=== PATIENT | female | born 2000 | race Caucasian/White ===

== ENCOUNTER 2018-03-27 07:45 | Emergency (ER) | payer OTHER ==
[2018-03-27 08:01] VITALS: BP 99/52
[2018-03-27] MEDS ORDERED: Ondansetron TAB* 4 MG PO ONE (08:27)
[2018-03-27] MEDS ORDERED: Acetaminophen TAB* 325 MG PO ONE (08:28)
[2018-03-27] MEDS ORDERED: Ondansetron ODT TAB* 4 MG ONE (08:33)
[2018-03-27] MEDS ORDERED: Ondansetron ODT TAB* 4 MG PO ONE (08:34)
--- NOTE | 2018-03-27 15:33 | UC ---
Jarrod Purvis Nikita, scribed for Mathieu Lux MD on 03/27/18 at 0829 . General HPI - HPI Summary HPI Summary: This patient is a 17 year old F presenting to [facility] with a chief complaint of nausea and vomiting since 0300 this morning. The patient rates the pain 5/10 in severity. Symptoms aggravated by nothing. Symptoms alleviated by nothing. Patient reports sore throat (last night) and body aches. The patient denies abdominal pain. - History of Current Complaint Chief Complaint: UCGeneralIllness Stated Complaint: VOMITING Time Seen by Provider: 03/27/18 08:02 Hx Obtained From: Patient Hx Last Menstrual Period: 03/18/18 Onset/Duration: Sudden Onset, Lasting Hours - since last night, Still Present Timing: Constant Onset Severity: Moderate Current Severity: Moderate Pain Intensity: 5 Aggravating: nothing Alleviating: nothing Associated Signs & Symptoms: Positive: Other - nausea and vomiting since 0300; Patient reports sore throat (last night) and body aches. The patient denies abdominal pain. - Allergy/Home Medications Allergies/Adverse Reactions: Allergies Allergy/AdvReac Type Severity Reaction Status Date / Time No Known Allergies Allergy Verified 03/27/18 07:56 Home Medications: Home Medications Control 1 tab PO DAILY 03/27/18 [History Confirmed 03/27/18] PMH/Surg Hx/FS Hx/Imm Hx Endocrine History: Other Other Endocrine History: No DM Cardiovascular History: Other Other Cardiovascular History: No CAD, HTN - Surgical History Surgical History: Yes Surgery Procedure, Year, and Place: Ear tubes at age 1, Right shoulder surgery - Family History Known Family History: Positive: Hypertension - Social History Alcohol Use: None Substance Use Type: None Smoking Status (MU): Never Smoked Tobacco - Immunization History Vaccination Up to Date: Yes Review of Systems ENT: Sore Throat Gastrointestinal: Vomiting, Nausea, Other - The patient denies abdominal pain. Musculoskeletal: Other: - body aches All Other Systems Reviewed And Are Negative: Yes Physical Exam - Summary Physical Exam Summary: VITAL SIGNS: Reviewed. GENERAL: ~Patient is a well-developed and nourished MALE who is lying comfortable in the stretcher. ~Patient is not in any acute respiratory distress. HEAD AND FACE: Normocephalic EYES: PERRLA, EOMI x 2. EARS: Hearing grossly intact. MOUTH: Pharyngeal erythema. NECK: Supple, trachea is midline, no adenopathy, no JVD, no carotid bruit. CHEST: Symmetric, no tenderness at palpation LUNGS: Clear to auscultation bilaterally. No wheezing or crackles. CVS: Regular rate and rhythm, S1 and S2 present, no murmurs or gallops appreciated. ABDOMEN: Soft, non-tender. Bowel sounds are normal. No abdominal abnormal pulsations. EXTREMITIES: Full ROM in all major joints, no edema, no cyanosis or clubbing. NEURO: Alert and oriented x 3. No acute neurological deficits. Speech is normal and follows commands. SKIN: Dry and warm Triage Information Reviewed: Yes Vital Signs: Initial Vital Signs Temp 100.9 F 03/27/18 07:57 Pulse 124 03/27/18 07:57 Resp 16 03/27/18 07:57 BP 99/52 03/27/18 07:57 Pulse Ox 99 03/27/18 07:57 Vital Signs Reviewed: Yes Re-Evaluation - Re-Evaluation First Eval Re-Evaluation Time: 08:49 Comment: Discussed results with the patient. Course/Dx - Course Course Of Treatment: This patient is a 17 year old F presenting to [facility] with a chief complaint of nausea and vomiting since 0300 this morning. In the UC course , the patient was given Tylenol and Zofran. The patient will be discharged and was instructed to go to the ED if she gets any worse or if she develops MONTIEL, neck pain, or abdominal pain. The pt is hemodynamically stable, alert and oriented x3. I discussed all the findings and test results with the patient. The patient will be discharged with instructions to follow up with their PCP. Patient was instructed to return to the urgent care or go to ER immediately if any of the symptoms return or worsens. Plan of care was discussed with the patient, and patient understands and agrees. All questions were answered to patient satisfaction. There were no further complaints or concerns. - Differential Dx - Multi-Symptom Provider Diagnoses: viral illness Discharge - Sign-Out/Discharge Documenting (check all that apply): Discharge/Admit/Transfer - Discharge Plan Condition: Stable Disposition: HOME Patient Education Materials: Pharyngitis (ED), Viral Syndrome (ED) Referrals: No Primary Care Phys,NOPCP [Primary Care Provider] - Additional Instructions: Take medications as instructed Increase your fluid intake Return to the UC or go to the ED if symptoms worsen The documentation as recorded by the Jarrod cr Nikita accurately reflects the service I personally performed and the decisions made by me, Mathieu Lux MD.
== END 2018-03-27 09:00 | disposition home or self-care (01) ==
LOC: UCEAST 07:45
DX: B34.9 Viral infection, unspecified (principal); R11.2 Nausea with vomiting, unspecified
CPT/HCPCS: 36415; 81003; 84702; 86308; 86664; 86665; 87502; 87651; 99202; A9270-GY; G0463

== ENCOUNTER 2019-04-27 17:51 | Emergency (ER) | payer OTHER ==
--- NOTE | 2019-04-27 18:04 | UC ---
Skin Complaint HPI - HPI Summary HPI Summary: 18 yo female presents with rash. She tells me that this morning she woke up with bug bites to her left leg that were red and itchy. Since that time she has developed similar appearing bites on her right leg, torso, back, and b/l arms. She applied calamine lotion with mild relief of itch. She share a household with her fiancee and he does not have any symptoms. Pt was outdoors a lot yesterday, but denies coming into contact with any insects or shrubbery. Denies SOB, swelling, or difficulty breathing. - History of Current Complaint Time Seen by Provider: 04/27/19 18:03 Stated Complaint: RASH Hx Obtained From: Patient Hx Last Menstrual Period: FIRST WEEK AUGUST Onset/Duration: Sudden Onset Onset Severity: Mild Current Severity: Mild Pain Intensity: 3 Pain Scale Used: 0-10 Numeric - Allergy/Home Medications Allergies/Adverse Reactions: Allergies Allergy/AdvReac Type Severity Reaction Status Date / Time BRIAR'S ICE CREAM Allergy Severe Anaphylatic Uncoded 04/27/19 18:08 Shock Home Medications: Home Medications Norgestimate-Ethinyl Estradiol [Sprintec 28 0.25-35 mg-Mcg] 1 tab PO 04/27/19 [ History] PMH/Surg Hx/FS Hx/Imm Hx - Additional Past Medical History Additional PMH: None - Surgical History Surgical History: Yes Surgery Procedure, Year, and Place: Ear tubes at age 1, Right shoulder surgery - Family History Known Family History: Positive: Hypertension - Social History Lives: With Family Alcohol Use: None Substance Use Type: None Smoking Status (MU): Never Smoked Tobacco - Immunization History Most Recent Tetanus Shot: UNKNOWN Vaccination Up to Date: Yes Review of Systems All Other Systems Reviewed And Are Negative: Yes Constitutional: Positive: Negative Skin: Positive: Rash Respiratory: Positive: Negative Cardiovascular: Positive: Negative Neurovascular: Positive: Negative Neurological: Positive: Negative Psychological: Positive: Negative Physical Exam - Summary Physical Exam Summary: GENERAL: NAD. WDWN. No pain distress. SKIN: B/L arms, legs, torso, and back with scattered 4-5mm welt-like appearing mildly erythematous lesions. No streaking, drainage, ecchymosis, or warmth. NECK: Supple. Nontender. No lymphadenopathy. CHEST: No accessory muscle use. Breathing comfortably and in no distress. CV: Pulses intact. Cap refill <2seconds NEURO: Alert. PSYCH: Age appropriate behavior. Triage Information Reviewed: Yes Vital Signs: Vital Signs: Temp Pulse Resp BP Pulse Ox 99.2 F 79 18 119/76 98 04/27/19 18:04 04/27/19 18:04 04/27/19 18:04 04/27/19 18:04 04/27/19 18:04 Vital Signs Reviewed: Yes Course/Dx - Course Course Of Treatment: Appears to be insect/flea/bed bug bites. Will have pt wash her bedding, continue calamine lotion, take a daily benadryl, and will rx for prednisone. Advised to f/u if symptoms do not resolve in 5 days. - Diagnoses Provider Diagnosis: Bug bites Discharge - Sign-Out/Discharge Documenting (check all that apply): Patient Departure All imaging exams completed and their final reports reviewed: No Studies - Discharge Plan Condition: Stable Disposition: HOME Prescriptions: predniSONE TAB* [Deltasone 20 MG TAB*] 40 mg PO DAILY #10 tab Patient Education Materials: Insect Bite or Sting (ED) Referrals: Hanna Salinas MD [Primary Care Provider] - Additional Instructions: If you develop a fever, shortness of breath, chest pain, new or worsening symptoms - please call your PCP or go to the ED immediately. 1) May continue to apply calamine lotion 2) I recommend you take a daily benadryl for the next 5-7 days in addition to the prednisone - Billing Disposition and Condition Condition: STABLE Disposition: Home
[2019-04-27 18:08] VITALS: BP 119/76
== END 2019-04-27 18:29 | disposition home or self-care (01) ==
LOC: UCEAST 17:51
DX: S80.862A Insect bite (nonvenomous), left lower leg, initial encounter (principal); W57.XXXA Bitten or stung by nonvenomous insect and other nonvenomous arthropods, initial encounter; Y92.013 Bedroom of single-family (private) house as the place of occurrence of the external cause
CPT/HCPCS: 99212; G0463

== ENCOUNTER 2019-12-21 19:38 | Emergency (ER) | payer OTHER ==
[2019-12-21 20:22] VITALS: BP 140/96
--- NOTE | 2019-12-21 21:16 | UC ---
Throat Pain/Nasal Magdaleno HPI - HPI Summary HPI Summary: 19-year-old female presenting with for complaint of sore throat 2 weeks. Patient states sore throat gradually worsened over the past 3 days. Patient states she felt like there were "lumps" in her throat this morning she tried to cough to clear it bandaged up vomiting. States that sensation has resolved. Denies any further nausea or vomiting. Denies other URI symptoms. Denies PND. Denies fever and chills. Normal appetite and fluid intake. Denies concern for the flu. Does note history of mono last year but states she did not have a sore throat with that. Taking DayQuil without relief of symptoms. - History of Current Complaint Chief Complaint: UCRespiratory Stated Complaint: SORE THROAT Hx Obtained From: Patient Hx Last Menstrual Period: 1 week ago Pain Intensity: 3 Pain Scale Used: 0-10 Numeric - Allergies/Home Medications Allergies/Adverse Reactions: Allergies Allergy/AdvReac Type Severity Reaction Status Date / Time BRIAR'S ICE CREAM Allergy Severe Anaphylatic Uncoded 12/21/19 20:22 Shock Home Medications: Home Medications Dm/Acetaminophen/Doxylamine [Vicks Nyquil Liquicaps] 2 each PO PRN 12/21/19 [ History] PMH/Surg Hx/FS Hx/Imm Hx - Surgical History Surgical History: Yes Surgery Procedure, Year, and Place: Ear tubes at age 1, Right shoulder surgery - Family History Known Family History: Positive: Hypertension - Social History Alcohol Use: None Substance Use Type: None Smoking Status (MU): Never Smoked Tobacco - Immunization History Most Recent Tetanus Shot: UNKNOWN Vaccination Up to Date: Yes Review of Systems All Other Systems Reviewed And Are Negative: Yes Constitutional: Positive: Negative ENT: Positive: Sore Throat Respiratory: Positive: Negative Cardiovascular: Positive: Negative Gastrointestinal: Positive: Negative Musculoskeletal: Positive: Negative Neurological: Positive: Negative Physical Exam - Summary Physical Exam Summary: Vital Signs Reviewed: Yes A+Ox3, no distress Eyes: Conjunctiva Clear ENT: Hearing grossly normal, TM x 2 clear, moist, uvula midline, no exudate, no erythema Neck: Positive: Supple Respiratory: Positive: No respiratory distress, No accessory muscle use + CTA throughout no w/r Cardiovascular: RRR nl s1, s2 no m/r Musculoskeletal Exam: NOBLE x 4 without difficulty Neurological: Positive: Alert Psychological: Positive: age appropriate behavior Skin: Positive: no rash, no ecchymosis Vital Signs: Initial Vital Signs Temp 99.5 F 12/21/19 20:19 Pulse 100 12/21/19 20:19 Resp 16 12/21/19 20:19 BP 140/96 12/21/19 20:19 Pulse Ox 100 12/21/19 20:19 Throat Pain/Nasal Course/Dx - Course Course Of Treatment: Rapid strep test negative. Declined flu test. Discussed this with patient. I informed the patient that I sent a throat swab for culture and that she would be notified with any results that warrant treatment. Instructed to continue with symptomatic treatment and follow up with physician referral or [facility] clinic if symptoms worsen or do not resolve within the week. Patient voiced understanding and agreed with the treatment plan. - Differential Dx/Diagnosis Provider Diagnosis: Pharyngitis Discharge ED - Sign-Out/Discharge Documenting (check all that apply): Patient Departure All imaging exams completed and their final reports reviewed: No Studies - Discharge Plan Condition: Stable Disposition: HOME Patient Education Materials: Pharyngitis (ED) Referrals: [facility] [Outside] - If Needed [facility] [Outside] - If Needed Additional Instructions: You tested negative for strep throat today. Your throat swab has been sent for culture and you will be notified with any results that warrant treatment. You may take ibuprofen and/or tylenol as directed for pain relief. You may use over the counter throat sprays or lozenges for symptomatic relief. Get plenty of rest and increase fluid intake. Follow up with the physician referral or the care connections clinic listed below if symptoms do not improve within the week. - Billing Disposition and Condition Condition: STABLE Disposition: Home
== END 2019-12-21 21:52 | disposition home or self-care (01) ==
LOC: UCEAST 19:38
DX: J02.9 Acute pharyngitis, unspecified (principal); Z91.018 Allergy to other foods
CPT/HCPCS: 87070; 87651; 99211; G0463

== ENCOUNTER 2023-04-16 00:42 | Inpatient (IN) ==
[2023-04-16] MEDS ORDERED: Ondansetron 4 mg VIAL 2 MG/ML 2 ml VIAL IV ONE (01:02)
[2023-04-16] MEDS ORDERED: Morphine 4 MG/ML VIAL (1 ml) IV PRN (01:02)
[2023-04-16] MEDS ORDERED: Morphine 4 MG/ML VIAL (1 ml) IV ONE ×2 (01:02→01:41)
[2023-04-16] MEDS ORDERED: Lactated Ringers 1000 ml BAG 1,000 ML IV ONE (01:03)
[2023-04-16 01:28] LABS: ABS Eosinophils 0.2 10^3/uL (0.0-0.5); ABS Lymphocytes 1.1 10^3/uL (1.0-4.8); ABS Monocytes 0.6 10^3/uL (0.0-0.9); ABS Neutrophils 7.2 10^3/uL (1.5-7.6); Hematocrit 40.8 % (35-45); Hemoglobin 14.6 g/dL (11.5-14.3); Lymphocyte % 12.4 %; Mean Corpuscular Hemoglobin 33.2 pg (27-33); Mean Corpuscular Hgb Conc 35.6 g/dL (31-36); Mean Corpuscular Volume 93.2 fL (80-97); Mean Platelet Volume 7.9 fL (7.5-11.2); Platelet Count 224 10^3/uL (150-450); Red Blood Count 4.38 10^6/uL (3.63-4.92); Red Cell Distribution Width 11.9 % (12-17); White Blood Count 9.2 10^3/uL (3.8-11.8)
[2023-04-16] MEDS ORDERED: Droperidol 5 MG/2 ML 2 ML VIAL IV ONE (01:41)
[2023-04-16 02:11] LABS: ALT 36 U/L (7-52); AST 33 U/L (13-39); Albumin 4.3 g/dL (3.2-5.2); Albumin/Globulin Ratio 1.7 (1-3); Alkaline Phosphatase 97 U/L (35-149); Anion Gap 12 mmol/L (2-16); Blood Urea Nitrogen 12 mg/dL (6-24); C Reactive Protein 14.96 mg/L (<8.01); CO2 Carbon Dioxide 19 mmol/L (22-32); Calcium 9.1 mg/dL (8.6-10.3); Chloride 104 mmol/L (101-111); Creatinine, Serum 0.67 mg/dL (0.51-0.95); Globulin 2.6 g/dL (2-4); Glucose 125 mg/dL (70-100); Lipase 27 U/L (11.0-82.0); Potassium 3.2 mmol/L (3.5-5.0); Sodium 135 mmol/L (135-145); Total Protein 6.9 g/dL (6.4-8.9); eGFR CKD-EPI 125.1 (>60)
[2023-04-16 02:17] LABS: HCG Pregnancy < 0.60 mIU/mL
[2023-04-16] MEDS ORDERED: Iohexol 350 (CONTRAST) 500 ML MDV IV ONE (02:20)
[2023-04-16 04:46] LABS: Urine Appearance Clear; Urine Bilirubin Negative (Negative); Urine Blood Negative (Negative); Urine Color Yellow; Urine Glucose Negative (Negative); Urine Ketones 1+ (Negative); Urine Nitrite Negative (Negative); Urine Protein Negative (Negative); Urine Specific Gravity 1.032 (1.002-1.030); Urine Urobilinogen Negative (Negative)
[2023-04-16] MEDS ORDERED: HYDROmorphone 0.5 MG/0.5 ML SYRINGE IV SLOW PU PRN (06:08)
[2023-04-16] MEDS: Lactated Ringers 1000 ml BAG 1,000 ML IV SCH ×3 (06:22→22:50)
[2023-04-16] MEDS ORDERED: Bupivacaine 0.25% EPI 200,000 30 ML SDV ONE (07:02)
[2023-04-16] MEDS ORDERED: Buffered Lidocaine 1% SYRIN 1 ml INTRADERM ONE (07:14)
[2023-04-16] MEDS ORDERED: Scopolamine 1 mg/72hr PATCH TRANSDERM ONE (07:14)
[2023-04-16] MEDS ORDERED: fentaNYL 100 mcg/2 ml 50 MCG/ML VIAL IV PRN (07:19)
[2023-04-16] MEDS ORDERED: Naloxone 0.4 mg VIAL 0.4 mg/ml 1 ml VIAL IV PRN (07:19)
[2023-04-16] MEDS ORDERED: HYDROmorphone 1 MG/1 ML SYRINGE IV PRN (07:19)
[2023-04-16] MEDS ORDERED: Ondansetron 4 mg VIAL 2 MG/ML 2 ml VIAL IV PRN (07:19)
[2023-04-16] MEDS ORDERED: ceFAZolin 2 GM in NS PREMIX 2 GM/100 ML BAG IVPB ONE (07:25)
[2023-04-16] MEDS ORDERED: Ondansetron 4 mg VIAL 2 MG/ML 2 ml VIAL ONE (07:25)
[2023-04-16] MEDS ORDERED: Propofol 10 MG/ML 20 ML BTL ONE ×2 (07:25→09:37)
[2023-04-16] MEDS ORDERED: fentaNYL 100 mcg/2 ml 50 MCG/ML VIAL ONE (07:25)
[2023-04-16] MEDS ORDERED: Dexamethasone IV 4 MG/ML VIAL 1 ml VIAL ONE (07:25)
[2023-04-16] MEDS ORDERED: HYDROmorphone 0.5 MG/0.5 ML SYRINGE ONE ×2 (07:25→09:10)
[2023-04-16] MEDS ORDERED: Midazolam 2 mg/2 ml VIAL 1 mg/ml 2 ml VIAL (2 mg) ONE (07:25)
[2023-04-16] MEDS ORDERED: Rocuronium 50 mg VIAL 10 mg/ml 5 ml VIAL (50 mg) ONE ×2 (07:26→09:14)
[2023-04-16] MEDS ORDERED: Lidocaine 2% PF 5 ML VIAL ONE (07:52)
[2023-04-16] MEDS ORDERED: Lactated Ringers 1000 ml BAG 1,000 ML IV SCH (08:00)
[2023-04-16] MEDS ORDERED: Acetaminophen IV 1 GM/100ML 1,000 MG/100 ML BAG IV ONE (08:35)
[2023-04-16] MEDS: Ondansetron 4 mg VIAL 2 MG/ML 2 ml VIAL IV PRN ×2 (16:43→21:05)
[2023-04-16] MEDS: HYDROmorphone 0.5 MG/0.5 ML SYRINGE IV SLOW PU PRN (21:05)
[2023-04-17] MEDS: HYDROmorphone 0.5 MG/0.5 ML SYRINGE IV SLOW PU PRN (03:09)
[2023-04-17 06:03] LABS: ABS Lymphocytes 0.9 10^3/uL (1.0-4.8); ABS Monocytes 0.4 10^3/uL (0.0-0.9); ABS Neutrophils 7.6 10^3/uL (1.5-7.6); Eosinophil % 0.3 %; Hematocrit 37.9 % (35-45); Hemoglobin 12.9 g/dL (11.5-14.3); Lymphocyte % 9.9 %; Mean Corpuscular Hemoglobin 33.5 pg (27-33); Mean Corpuscular Hgb Conc 34.1 g/dL (31-36); Mean Corpuscular Volume 98.3 fL (80-97); Mean Platelet Volume 7.5 fL (7.5-11.2); Platelet Count 173 10^3/uL (150-450); Red Blood Count 3.85 10^6/uL (3.63-4.92); Red Cell Distribution Width 12.3 % (12-17); White Blood Count 8.8 10^3/uL (3.8-11.8)
[2023-04-17 06:26] LABS: Calcium 8.1 mg/dL (8.6-10.3); Creatinine, Serum 0.67 mg/dL (0.51-0.95); Potassium 3.9 mmol/L (3.5-5.0); eGFR CKD-EPI 125.1 (>60)
[2023-04-17] MEDS: Lactated Ringers 1000 ml BAG 1,000 ML IV SCH (07:42)
[2023-04-17] MEDS ORDERED: Naloxone 0.4 mg VIAL 0.4 mg/ml 1 ml VIAL IV PUSH PRN (08:50)
[2023-04-17] MEDS ORDERED: HYDROmorphone PCA 20 MG/20 ML PCA.SYRING PCA SCH (09:00)
[2023-04-17] MEDS: Ondansetron 4 mg VIAL 2 MG/ML 2 ml VIAL IV PRN ×3 (09:21→20:14)
[2023-04-17] MEDS ORDERED: HYDROmorphone 0.5 MG/0.5 ML SYRINGE ONE (09:22)
[2023-04-17] MEDS: Enoxaparin 40 MG/0.4 ML SYR SUBCUT SCH (09:29)
[2023-04-17] MEDS ORDERED: D5W 1/2 NS KCl 20 meq 1000 ml 1,000 ML IV SCH (23:00)
[2023-04-18 06:08] LABS: ABS Eosinophils 0.3 10^3/uL (0.0-0.5); ABS Lymphocytes 1.2 10^3/uL (1.0-4.8); ABS Monocytes 0.5 10^3/uL (0.0-0.9); ABS Neutrophils 7.7 10^3/uL (1.5-7.6); ABS Nucleated RBC 0.01 10^3/ul; Eosinophil % 2.8 %; Hematocrit 36.1 % (35-45); Hemoglobin 12.5 g/dL (11.5-14.3); Lymphocyte % 12.3 %; Mean Corpuscular Hgb Conc 34.7 g/dL (31-36); Mean Corpuscular Volume 95.1 fL (80-97); Mean Platelet Volume 7.6 fL (7.5-11.2); Nucleated Red Blood Cells % 0.1 /100 WBC (0.0-0.4); Platelet Count 177 10^3/uL (150-450); White Blood Count 9.7 10^3/uL (3.8-11.8)
[2023-04-18 06:35] LABS: Calcium 8.1 mg/dL (8.6-10.3); Creatinine, Serum 0.59 mg/dL (0.51-0.95); Potassium 3.7 mmol/L (3.5-5.0)
[2023-04-18] MEDS: Enoxaparin 40 MG/0.4 ML SYR SUBCUT SCH (08:05)
[2023-04-18 17:36] LABS: ABS Eosinophils 0.2 10^3/uL (0.0-0.5); ABS Lymphocytes 0.8 10^3/uL (1.0-4.8); ABS Monocytes 0.3 10^3/uL (0.0-0.9); ABS Neutrophils 7.5 10^3/uL (1.5-7.6); ABS Nucleated RBC 0.02 10^3/ul; Eosinophil % 2.5 %; Hemoglobin 13.5 g/dL (11.5-14.3); Lymphocyte % 8.7 %; Mean Corpuscular Hemoglobin 32.8 pg (27-33); Mean Corpuscular Hgb Conc 34.6 g/dL (31-36); Mean Corpuscular Volume 94.9 fL (80-97); Mean Platelet Volume 7.4 fL (7.5-11.2); Nucleated Red Blood Cells % 0.2 /100 WBC (0.0-0.4); Platelet Count 223 10^3/uL (150-450); Red Blood Count 4.11 10^6/uL (3.63-4.92); White Blood Count 8.8 10^3/uL (3.8-11.8)
[2023-04-18] MEDS ORDERED: Buffered Lidocaine 1% SYRIN 1 ml INTRADERM ONE (20:24)
[2023-04-18] MEDS ORDERED: Sodium Citrate/Citric Acid LIQ 15 ML UDC PO ONE (20:24)
[2023-04-18] MEDS ORDERED: Ondansetron 4 mg VIAL 2 MG/ML 2 ml VIAL IV PRN (20:25)
[2023-04-18] MEDS ORDERED: Naloxone 0.4 mg VIAL 0.4 mg/ml 1 ml VIAL IV PRN (20:25)
[2023-04-18] MEDS ORDERED: HYDROmorphone 1 MG/1 ML SYRINGE IV PRN (20:25)
[2023-04-18] MEDS ORDERED: Midazolam 2 mg/2 ml VIAL 1 mg/ml 2 ml VIAL (2 mg) ONE (20:33)
[2023-04-18] MEDS ORDERED: fentaNYL 100 mcg/2 ml 50 MCG/ML VIAL ONE ×2 (20:33→23:19)
[2023-04-18] MEDS ORDERED: Propofol 10 MG/ML 20 ML BTL ONE (20:34)
[2023-04-18] MEDS ORDERED: Dexamethasone IV 4 MG/ML VIAL 1 ml VIAL ONE (20:34)
[2023-04-18] MEDS ORDERED: Ondansetron 4 mg VIAL 2 MG/ML 2 ml VIAL ONE ×2 (20:34→23:16)
[2023-04-18] MEDS ORDERED: Rocuronium 50 mg VIAL 10 mg/ml 5 ml VIAL (50 mg) ONE (20:34)
[2023-04-18] MEDS ORDERED: Bupivacaine 0.25% EPI 200,000 30 ML SDV ONE (20:44)
[2023-04-18] MEDS ORDERED: Sodium Citrate/Citric Acid LIQ 15 ML UDC ONE (20:57)
[2023-04-18] MEDS ORDERED: Lactated Ringers 1000 ml BAG 1,000 ML IV SCH (21:00)
[2023-04-18] MEDS ORDERED: Ertapenem 1 GM in NS 0.9% 50 ML IVPB ONE (21:00)
[2023-04-18] MEDS ORDERED: fentaNYL 250 mcg/5 ml 50 MCG/ML 5 ml VIAL (250 MCG) ONE (21:22)
[2023-04-18] MEDS ORDERED: Phenylephrine 40 mcg/mL 10mL (400mcg) SYRINGE ONE (21:32)
[2023-04-18] MEDS ORDERED: ZOSYN 3.375 GM x ONE DOSE over 30 miuntes IV (23:00)
[2023-04-18] MEDS: fentaNYL 100 mcg/2 ml 50 MCG/ML VIAL IV PRN ×2 (23:27→23:43)
[2023-04-18] MEDS: HYDROmorphone PCA 20 MG/20 ML PCA.SYRING PCA SCH (23:28)
[2023-04-19] MEDS ORDERED: fentaNYL 100 mcg/2 ml 50 MCG/ML VIAL ONE
[2023-04-19] MEDS: fentaNYL 100 mcg/2 ml 50 MCG/ML VIAL IV PRN (00:01)
[2023-04-19] MEDS: Acetaminophen IV 1 GM/100ML 1,000 MG/100 ML BAG IV PRN (02:07)
[2023-04-19] MEDS: Piperacillin/Tazobac ADVAN 3.375 GM in NS 0.9% 100 ml BAG 100 ML IV SCH ×3 (04:03→20:42)
[2023-04-19] MEDS: Enoxaparin 40 MG/0.4 ML SYR SUBCUT SCH (08:24)
[2023-04-19 10:32] LABS: Urine Appearance Cloudy; Urine Bilirubin Negative (Negative); Urine Blood 3+ (Negative); Urine Color Yellow; Urine Glucose Negative (Negative); Urine Ketones 2+ (Negative); Urine Nitrite Negative (Negative); Urine Protein 1+(30 mg/dL) (Negative); Urine Specific Gravity 1.021 (1.002-1.030); Urine Urobilinogen Negative (Negative)
[2023-04-19 10:37] LABS: Urine Bacteria Absent (Absent); Urine Red Blood Cell 3+(>10/hpf) (Absent); Urine Squamous Epithelial Cell Present (Absent); Urine White Blood Cell 2+(11-20/hpf) (Absent)
[2023-04-19] MEDS: D5W 1/2 NS KCl 20 meq 1000 ml 1,000 ML IV SCH (11:18)
[2023-04-19] MEDS: Polyethylene Glycol 3350 17 GM PACKET PO SCH (15:12)
[2023-04-19] MEDS: Sodium Phosphate ADULT ENEMA 133 ML BTL PR SCH (17:18)
[2023-04-20] MEDS: D5W 1/2 NS KCl 20 meq 1000 ml 1,000 ML IV SCH ×2 (00:41→14:10)
[2023-04-20] MEDS: Acetaminophen IV 1 GM/100ML 1,000 MG/100 ML BAG IV PRN (00:54)
[2023-04-20] MEDS: Piperacillin/Tazobac ADVAN 3.375 GM in NS 0.9% 100 ml BAG 100 ML IV SCH ×3 (04:51→20:19)
[2023-04-20 08:00] LABS: ABS Eosinophils 0.2 10^3/uL (0.0-0.5); ABS Monocytes 0.5 10^3/uL (0.0-0.9); ABS Neutrophils 5.4 10^3/uL (1.5-7.6); Eosinophil % 2.1 %; Hematocrit 33.7 % (35-45); Hemoglobin 11.9 g/dL (11.5-14.3); Lymphocyte % 14.7 %; Mean Corpuscular Hemoglobin 33.8 pg (27-33); Mean Corpuscular Hgb Conc 35.3 g/dL (31-36); Mean Corpuscular Volume 95.8 fL (80-97); Mean Platelet Volume 7.3 fL (7.5-11.2); Platelet Count 213 10^3/uL (150-450); Red Blood Count 3.52 10^6/uL (3.63-4.92); Red Cell Distribution Width 11.9 % (12-17); White Blood Count 7.1 10^3/uL (3.8-11.8)
[2023-04-20 08:21] LABS: Calcium 8.2 mg/dL (8.6-10.3); Creatinine, Serum 0.53 mg/dL (0.51-0.95); Potassium 3.4 mmol/L (3.5-5.0); eGFR CKD-EPI 132.4 (>60)
[2023-04-20] MEDS: Polyethylene Glycol 3350 17 GM PACKET PO SCH (09:00)
[2023-04-20] MEDS: Enoxaparin 40 MG/0.4 ML SYR SUBCUT SCH (09:01)
[2023-04-20] MEDS: Sodium Phosphate ADULT ENEMA 133 ML BTL PR SCH (11:53)
[2023-04-20] MEDS: HYDROmorphone PCA 20 MG/20 ML PCA.SYRING PCA SCH (12:18)
[2023-04-21] MEDS: Piperacillin/Tazobac ADVAN 3.375 GM in NS 0.9% 100 ml BAG 100 ML IV SCH ×3 (04:23→20:40)
[2023-04-21] MEDS: D5W 1/2 NS KCl 20 meq 1000 ml 1,000 ML IV SCH (04:27)
[2023-04-21] MEDS: Sodium Phosphate ADULT ENEMA 133 ML BTL PR SCH (07:22)
[2023-04-21] MEDS: Enoxaparin 40 MG/0.4 ML SYR SUBCUT SCH (08:22)
[2023-04-21] MEDS: Polyethylene Glycol 3350 17 GM PACKET PO SCH (08:22)
[2023-04-21] MEDS ORDERED: Morphine 2 MG/ML SYRINGE IV PRN (11:34)
[2023-04-21] MEDS: KCL 20 MEQ/100 ML IVPREMIX 20 MEQ/100 ML BAG IV SCH ×2 (12:20→15:20)
[2023-04-22] MEDS: Piperacillin/Tazobac ADVAN 3.375 GM in NS 0.9% 100 ml BAG 100 ML IV SCH ×3 (05:02→19:56)
[2023-04-22] MEDS: Sodium Phosphate ADULT ENEMA 133 ML BTL PR SCH (08:14)
[2023-04-22] MEDS: Enoxaparin 40 MG/0.4 ML SYR SUBCUT SCH (09:19)
[2023-04-22] MEDS: Polyethylene Glycol 3350 17 GM PACKET PO SCH (09:20)
[2023-04-23] MEDS: Piperacillin/Tazobac ADVAN 3.375 GM in NS 0.9% 100 ml BAG 100 ML IV SCH (03:50)
[2023-04-23] MEDS: Polyethylene Glycol 3350 17 GM PACKET PO SCH (10:17)
[2023-04-23] MEDS: Enoxaparin 40 MG/0.4 ML SYR SUBCUT SCH (10:17)
[2023-04-23 11:12] VITALS: BP 117/76
== END 2023-04-23 12:30 | disposition home or self-care (01) | DRG 330 ==
LOC: EDHOLD 00:42 → ED 00:42 → AA 07:17 → SSU 13:01
PROVIDERS: ADMIT Surgery; ATTEND Surgery

== ENCOUNTER 2023-09-30 02:12 | Inpatient (IN) ==
[2023-09-30] MEDS ORDERED: Lactated Ringers 1000 ml BAG 1,000 ML IV ONE (03:39)
[2023-09-30] MEDS ORDERED: Ondansetron 4 mg VIAL 2 MG/ML 2 ml VIAL IV ONE ×3 (03:39→22:02)
[2023-09-30] MEDS ORDERED: Famotidine IV 10 MG/ML 2 ml VIAL (20 mg) IV SLOW PU ONE (03:40)
[2023-09-30 03:54] LABS: ABS Eosinophils 0.1 10^3/uL (0.0-0.5); ABS Lymphocytes 1.3 10^3/uL (1.0-4.8); ABS Monocytes 0.5 10^3/uL (0.0-0.9); ABS Neutrophils 8.6 10^3/uL (1.5-7.6); ABS Nucleated RBC 0.01 10^3/ul; Eosinophil % 1.1 %; Hematocrit 38.5 % (35-45); Hemoglobin 13.6 g/dL (11.5-14.3); Lymphocyte % 12.4 %; Mean Corpuscular Hemoglobin 34.2 pg (27-33); Mean Corpuscular Hgb Conc 35.4 g/dL (31-36); Mean Corpuscular Volume 96.5 fL (80-97); Mean Platelet Volume 7.6 fL (7.5-11.2); Platelet Count 214 10^3/uL (150-450); Red Blood Count 3.99 10^6/uL (3.63-4.92); Red Cell Distribution Width 13.9 % (12-17); White Blood Count 10.6 10^3/uL (3.8-11.8)
[2023-09-30 04:13] LABS: Albumin 3.7 g/dL (3.2-5.2); Albumin/Globulin Ratio 1.3 (1-3); Creatinine, Serum 0.5 mg/dL (0.51-0.95); Globulin 2.8 g/dL (2-4); Potassium 4.1 mmol/L (3.5-5.0); Total Bilirubin 0.3 mg/dL (0.2-1.0); Total Protein 6.5 g/dL (6.4-8.9); eGFR CKD-EPI 133.4 (>60)
[2023-09-30 04:51] LABS: C Reactive Protein 3.23 mg/L (<8.01)
[2023-09-30] MEDS ORDERED: Acetaminophen IV 1 GM/100ML 1,000 MG/100 ML BAG IV ONE ×2 (05:00→09:59)
[2023-09-30 06:30] LABS: Urine Appearance Turbid; Urine Bilirubin Negative (Negative); Urine Blood Negative (Negative); Urine Color Amber; Urine Glucose Negative (Negative); Urine Ketones Trace (Negative); Urine Nitrite Negative (Negative); Urine Protein Negative (Negative); Urine Specific Gravity 1.017 (1.002-1.030); Urine Urobilinogen Negative (Negative)
[2023-09-30] MEDS ORDERED: Al Hydrox/Mg Hydrox/Simet LIQ 30 ML UDC PO ONE ×2 (07:31→11:12)
[2023-09-30] MEDS ORDERED: Acetaminophen IV 1 GM/100ML 920 MG/92 ML BAG IV ONE (09:03)
[2023-09-30] MEDS ORDERED: Metoclopramide 5 MG/ML VIAL (10 mg) IV ONE ×2 (10:20→16:14)
[2023-09-30] MEDS ORDERED: Pyridoxine INJ 100 MG/ML VIAL IV ONE (19:09)
[2023-09-30] MEDS ORDERED: Promethazine INJ(RESTRICTED) 25 MG/ML 1 ml VIAL IV ONE (19:12)
[2023-10-01] MEDS ORDERED: Famotidine IV 10 MG/ML 2 ml VIAL (20 mg) IV SLOW PU ONE (04:53)
[2023-10-01] MEDS ORDERED: Metoclopramide 5 MG/ML VIAL (10 mg) IV ONE (04:54)
[2023-10-01] MEDS ORDERED: Al Hydrox/Mg Hydrox/Simet LIQ 30 ML UDC PO ONE (04:54)
[2023-10-01] MEDS ORDERED: Lactated Ringers 1000 ml BAG 1,000 ML IV ONE (06:56)
[2023-10-01 07:38] LABS: ABS Lymphocytes 1.1 10^3/uL (1.0-4.8); ABS Monocytes 0.7 10^3/uL (0.0-0.9); ABS Neutrophils 14.1 10^3/uL (1.5-7.6); Hematocrit 39.3 % (35-45); Hemoglobin 13.9 g/dL (11.5-14.3); Lymphocyte % 6.8 %; Mean Corpuscular Hemoglobin 33.9 pg (27-33); Mean Corpuscular Hgb Conc 35.4 g/dL (31-36); Mean Corpuscular Volume 95.7 fL (80-97); Mean Platelet Volume 7.7 fL (7.5-11.2); Platelet Count 287 10^3/uL (150-450); Red Blood Count 4.11 10^6/uL (3.63-4.92); Red Cell Distribution Width 13.8 % (12-17); White Blood Count 15.9 10^3/uL (3.8-11.8)
[2023-10-01 07:55] LABS: Albumin 3.8 g/dL (3.2-5.2); Albumin/Globulin Ratio 1.3 (1-3); CRP High Sensitivity 13.36 mg/L (<2.00); Creatinine, Serum 0.5 mg/dL (0.51-0.95); Potassium 3.4 mmol/L (3.5-5.0); Total Bilirubin 0.6 mg/dL (0.2-1.0); Total Protein 6.8 g/dL (6.4-8.9); eGFR CKD-EPI 133.4 (>60)
[2023-10-01] MEDS ORDERED: Ondansetron 4 mg VIAL 2 MG/ML 2 ml VIAL IV ONE (08:07)
[2023-10-01] MEDS: Acetaminophen IV 1 GM/100ML 1,000 MG/100 ML BAG IV SCH (13:07)
[2023-10-01] MEDS: Lactated Ringers 1000 ml BAG 1,000 ML IV SCH ×2 (13:23→14:33)
[2023-10-01] MEDS ORDERED: Ondansetron 4 mg VIAL 2 MG/ML 2 ml VIAL ONE ×2 (17:27→23:59)
[2023-10-01] MEDS ORDERED: Ondansetron 4 mg VIAL 2 MG/ML 2 ml VIAL IV PRN ×2 (17:29→23:58)
[2023-10-01] MEDS ORDERED: Sodium Citrate/Citric Acid LIQ 15 ML UDC ONE (17:35)
[2023-10-01] MEDS ORDERED: Propofol 10 MG/ML 20 ML BTL ONE (17:59)
[2023-10-01] MEDS ORDERED: Rocuronium 50 mg VIAL 10 mg/ml 5 ml VIAL (50 mg) ONE ×2 (17:59→22:33)
[2023-10-01] MEDS ORDERED: Lidocaine 2% PF 5 ML VIAL ONE (17:59)
[2023-10-01] MEDS ORDERED: Bupivacaine 0.25% SDV PF 10 ML VIAL INJ ONE (18:18)
[2023-10-01] MEDS ORDERED: Lidocaine 1% w EPI 1:200,000 SDV 30 ML VIAL ONE (18:18)
[2023-10-01] MEDS ORDERED: fentaNYL 250 mcg/5 ml 50 MCG/ML 5 ml VIAL (250 MCG) ONE (20:47)
[2023-10-01] MEDS ORDERED: ceFAZolin 2 GM in NS PREMIX 2 GM/100 ML BAG IVPB ONE (20:52)
[2023-10-01] MEDS ORDERED: fentaNYL 100 mcg/2 ml 50 MCG/ML VIAL ONE ×2 (22:01→23:58)
[2023-10-01] MEDS ORDERED: Naloxone 0.4 mg VIAL 0.4 mg/ml 1 ml VIAL IV PRN (23:58)
[2023-10-01] MEDS ORDERED: Metoclopramide 5 MG/ML VIAL (10 mg) IV PRN (23:58)
[2023-10-02] MEDS: fentaNYL 100 mcg/2 ml 50 MCG/ML VIAL IV PRN ×4 (00:03→00:42)
[2023-10-02] MEDS ORDERED: fentaNYL 100 mcg/2 ml 50 MCG/ML VIAL ONE (00:20)
[2023-10-02] MEDS ORDERED: HYDROmorphone 1 MG/1 ML SYRINGE ONE (00:48)
[2023-10-02] MEDS: HYDROmorphone 1 MG/1 ML SYRINGE IV PRN ×5 (00:51→01:20)
[2023-10-02] MEDS: Lactated Ringers 1000 ml BAG 1,000 ML IV SCH ×3 (01:46→21:15)
[2023-10-02] MEDS: Acetaminophen IV 1 GM/100ML 1,000 MG/100 ML BAG IV SCH ×4 (01:48→17:41)
[2023-10-02 07:03] LABS: ABS Monocytes 0.6 10^3/uL (0.0-0.9); ABS Neutrophils 8.5 10^3/uL (1.5-7.6); Eosinophil % 0.1 %; Hematocrit 36.6 % (35-45); Hemoglobin 12.8 g/dL (11.5-14.3); Lymphocyte % 9.7 %; Mean Corpuscular Hemoglobin 34.1 pg (27-33); Mean Corpuscular Volume 97.4 fL (80-97); Mean Platelet Volume 7.7 fL (7.5-11.2); Platelet Count 209 10^3/uL (150-450); Red Blood Count 3.76 10^6/uL (3.63-4.92); White Blood Count 10.1 10^3/uL (3.8-11.8)
[2023-10-02 07:10] LABS: Creatinine, Serum 0.44 mg/dL (0.51-0.95); Potassium 3.2 mmol/L (3.5-5.0); eGFR CKD-EPI 137.6 (>60)
[2023-10-02] MEDS ORDERED: Metoclopramide 5 MG/ML VIAL (10 mg) IV PRN (11:36)
[2023-10-02] MEDS ORDERED: Ondansetron 4 mg VIAL 2 MG/ML 2 ml VIAL IV PRN (11:36)
[2023-10-03] MEDS: Acetaminophen IV 1 GM/100ML 1,000 MG/100 ML BAG IV SCH ×4 (02:09→22:41)
[2023-10-03] MEDS: Lactated Ringers 1000 ml BAG 1,000 ML IV SCH ×2 (05:18→13:27)
[2023-10-03 09:08] LABS: Calcium 7.9 mg/dL (8.6-10.3); Creatinine, Serum 0.38 mg/dL (0.51-0.95); Potassium 3.4 mmol/L (3.5-5.0); eGFR CKD-EPI 142.5 (>60)
[2023-10-03] MEDS ORDERED: KCL 20 MEQ/100 ML IVPREMIX 20 MEQ/100 ML BAG IV ONE (13:44)
[2023-10-03] MEDS ORDERED: D5W 1/2 NS KCl 20 meq 1000 ml 1,000 ML IV SCH (14:00)
[2023-10-03] MEDS: D5W 1/2 NS KCl 20 meq 1000 ml 1,000 ML IV SCH ×2 (15:20→23:26)
[2023-10-04] MEDS: Acetaminophen IV 1 GM/100ML 1,000 MG/100 ML BAG IV SCH ×2 (02:43→08:08)
[2023-10-04] MEDS: D5W 1/2 NS KCl 20 meq 1000 ml 1,000 ML IV SCH (07:51)
[2023-10-05 10:31] VITALS: BP 102/64
== END 2023-10-05 10:58 | disposition home or self-care (01) | DRG 357 ==
LOC: ED 02:12 → MERGE 02:12 → EDHOLD 02:12 → SSU 10-01 13:42
PROVIDERS: ADMIT Surgery; ATTEND Surgery

== ENCOUNTER 2024-03-02 13:47 | Inpatient (IN) ==
[2024-03-02] MEDS ORDERED: Prochlorperazine 5 mg/ml 2 ml VIAL (10 mg) IV PRN (14:45)
[2024-03-02] MEDS ORDERED: Buffered Lidocaine 1% SYRIN 1 ml INTRADERM ONE (14:45)
[2024-03-02] MEDS ORDERED: Lidocaine 1% VIAL 10 MG/ML 30 ML VIAL INJ PRN (14:45)
[2024-03-02] MEDS ORDERED: Nalbuphine 10 MG/ML 1 ML VIAL IV PRN (14:45)
[2024-03-02] MEDS: Lactated Ringers 1000 ml BAG 1,000 ML IV ONE (14:45)
[2024-03-02 15:01] LABS: ABS Eosinophils 0.1 10^3/uL (0.0-0.5); ABS Lymphocytes 1.5 10^3/uL (1.0-4.8); ABS Monocytes 0.5 10^3/uL (0.0-0.9); ABS Neutrophils 6.1 10^3/uL (1.5-7.6); Eosinophil % 1.4 %; Hematocrit 38.6 % (35-45); Hemoglobin 13.5 g/dL (11.5-14.3); Lymphocyte % 18.2 %; Mean Corpuscular Volume 99.8 fL (80-97); Mean Platelet Volume 9.7 fL (7.5-11.2); Platelet Count 146 10^3/uL (150-450); Red Blood Count 3.87 10^6/uL (3.63-4.92); Red Cell Distribution Width 12.6 % (12-17); White Blood Count 8.2 10^3/uL (3.8-11.8)
[2024-03-02] MEDS: Lactated Ringers 1000 ml BAG 1,000 ML IV SCH (15:34)
[2024-03-02 15:37] LABS: Urine Benzodiazepine Screen None Detected (None Detect); Urine Cannabinoids Screen None Detected (None Detect); Urine Opiates Screen None Detected (None Detect)
[2024-03-02] MEDS: Dinoprostone 10 MG VAG.SUPP VAGINAL ONE (16:54)
[2024-03-03] MEDS ORDERED: Ondansetron 4 mg VIAL 2 MG/ML 2 ml VIAL ONE (06:57)
[2024-03-03] MEDS ORDERED: ceFOXitin 2 GM IVPREMIX 0 GM/0 ML BAG ONE (06:57)
[2024-03-03] MEDS ORDERED: Morphine PF AMP (0.5MG/ML) 5 MG/10 ML AMP ONE (06:57)
[2024-03-03] MEDS ORDERED: Oxytocin 10 UNITS/ML 1 ML VIAL ONE (06:57)
[2024-03-03] MEDS ORDERED: Phenylephrine IV 10 MG/ML 1 ml VIAL ONE (07:01)
[2024-03-03] MEDS: Sodium Citrate/Citric Acid LIQ 15 ML UDC ONE (07:25)
[2024-03-03] MEDS: ceFOXitin 2 GM IVPREMIX 2 GM/50 ML BAG IVPB ONE (07:26)
[2024-03-03] MEDS ORDERED: Acetaminophen IV 1 GM/100ML 1,000 MG/100 ML BAG IV ONE (07:27)
[2024-03-03] MEDS ORDERED: Naloxone 0.4 mg VIAL 0.4 mg/ml 1 ml VIAL IV PRN (08:14)
[2024-03-03] MEDS ORDERED: HYDROmorphone 1 MG/1 ML SYRINGE IV PRN (08:14)
[2024-03-03] MEDS ORDERED: Metoclopramide 5 MG/ML VIAL (10 mg) IV PRN (08:17)
[2024-03-03] MEDS ORDERED: Ondansetron 4 mg VIAL 2 MG/ML 2 ml VIAL IV PRN (08:17)
[2024-03-03] MEDS ORDERED: Acetaminophen IV 1 GM/100ML 1,000 MG/100 ML BAG IV PRN (08:17)
[2024-03-03] MEDS ORDERED: Naloxone 0.4 mg VIAL 0.4 mg/ml 1 ml VIAL IV PUSH PRN (08:17)
[2024-03-03] MEDS ORDERED: Bupivacaine-MPF SPINAL 7.5 MG/ML - 2ML AMP ONE (08:35)
[2024-03-03 09:06] LABS: Urine Appearance Clear; Urine Bilirubin Negative (Negative); Urine Blood Negative (Negative); Urine Color Colorless; Urine Glucose Negative (Negative); Urine Ketones Negative (Negative); Urine Nitrite Negative (Negative); Urine Protein Negative (Negative); Urine Specific Gravity 1.007 (1.002-1.030); Urine Urobilinogen Negative (Negative); Urine pH 7.5 (5.0-8.0)
[2024-03-03] MEDS ORDERED: Glycerin ADULT 2.4 gm SUPP PR PRN (09:16)
[2024-03-03] MEDS ORDERED: Dibucaine 1% OINT 28.35 GM TUBE PR PRN (09:16)
[2024-03-03] MEDS ORDERED: Witch Hazel PAD JAR TOPICAL PRN (09:16)
[2024-03-03] MEDS ORDERED: Lactated Ringers 1000 ml BAG 1,000 ML IV SCH (10:00)
[2024-03-03] MEDS: Oxytocin in LR 20,000 MILLI.UNIT/1,000 ML BAG IV SCH (16:22)
[2024-03-04 07:54] LABS: ABS Eosinophils 0.1 10^3/uL (0.0-0.5); ABS Lymphocytes 1.2 10^3/uL (1.0-4.8); ABS Monocytes 0.6 10^3/uL (0.0-0.9); ABS Neutrophils 8.8 10^3/uL (1.5-7.6); Eosinophil % 0.8 %; Hematocrit 35.7 % (35-45); Hemoglobin 12.5 g/dL (11.5-14.3); Mean Corpuscular Hemoglobin 34.9 pg (27-33); Mean Corpuscular Hgb Conc 34.9 g/dL (31-36); Mean Corpuscular Volume 99.8 fL (80-97); Mean Platelet Volume 9.3 fL (7.5-11.2); Platelet Count 121 10^3/uL (150-450); Red Blood Count 3.57 10^6/uL (3.63-4.92); Red Cell Distribution Width 12.7 % (12-17); White Blood Count 10.6 10^3/uL (3.8-11.8)
[2024-03-04 09:38] VITALS: BP 121/75
== END 2024-03-04 16:28 | disposition home or self-care (01) | DRG 788 ==
LOC: MCHOBOUT 13:47 → MCHOB 14:36
PROVIDERS: ADMIT Obstetrics & Gynecology; ATTEND Obstetrics & Gynecology